=== PATIENT | female | born 1995 | race Caucasian/White ===

== ENCOUNTER 2017-03-18 16:10 | Emergency (ER) | payer SELFPAY ==
--- NOTE | ~2017-03-18 | ER ---
PATIENT'S NAME: [facility] AGE: 21 Y [address] ROOM: [place] [id number] LOCATION: [facility] ADMIT DATE: 03/18/2017 ER/Outpatient Report DISCHARGE DATE: 03/18/2017 FAMILY PHYSICIAN: Physician, Unknown ATTENDING PHYSICIAN: Shelly Novak Time of Arrival: 1630 hours. Time of Evaluation: 1630 hours. CHIEF COMPLAINT: Possible bug bite. HISTORY OF PRESENT ILLNESS: The patient states she has a sore on her left lateral thigh area that she has had for the last 3 days. It has been itching and does have a scab to it. She states it has been draining off and on. It is more tender and red today than what it had been. She is concerned that it might be related to a spider bite. She has not had a fever, no chills. Has not taken anything for the pain or discomfort. ALLERGIES: NO KNOWN ALLERGIES. MEDICATIONS: No regular medications. PAST MEDICAL HISTORY: Eczema. PAST SURGICAL HISTORY: Negative. She is currently having her menstrual period. SOCIAL HISTORY: Denies use of tobacco. Does smoke marijuana on a regular basis. Denies use of alcohol. REVIEW OF SYSTEMS: All negative other than those mentioned in the HPI. PHYSICAL EXAMINATION: VITAL SIGNS: She weighed 77.1 kg. Blood pressure is 122/64, pulse is 76, respirations 16, temperature of 98.2, and O2 saturation is 98% on room air. GENERAL: She is awake, alert, and oriented x4. PATIENT'S NAME: [facility] AGE: 21 Y [address] ROOM: [place] [id number] LOCATION: [facility] ADMIT DATE: 03/18/2017 ER/Outpatient Report DISCHARGE DATE: 03/18/2017 FAMILY PHYSICIAN: Physician, Unknown ATTENDING PHYSICIAN: Shelly Novak SKIN: [place], warm, and dry. RESPIRATIONS: Even and nonlabored. Lung sounds are clear throughout. HEART: Regular rate and rhythm. SKIN: The patient has an approximate 1.5 cm in diameter reddened area to the left lateral thigh, it does have a scab to it. Area was cleansed well with alcohol, scab area was scraped off, and there was a small amount of purulent drainage. Culture was obtained. Band-Aid was applied to the area. IMPRESSION: Cellulitis of the left lateral thigh. PLAN: Home, rest. Keep it clean and dry. Wash it at least twice a day with soap and water. Prescription was written for Bactrim. She is to take Tylenol as needed for discomfort. Followup with her primary provider in the next 2 to 3 days. She verbalized understanding. CLAUDETTE LE APRN FOR MD DELMA HERNANDEZ/christopher /[id number] d: 03/18/17 [id number] t: 03/25/17 2019, OUTPATIENT REPORT
== END 2017-03-18 16:56 | disposition disaster alternative care site (69) ==
LOC: GACC 16:10
DX: L03.116 Cellulitis of left lower limb (principal); F12.10 Cannabis abuse, uncomplicated; Z87.2 Personal history of diseases of the skin and subcutaneous tissue